=== PATIENT | male | born 1945 ===

== ENCOUNTER 2020-09-01 14:19 | Emergency (ER) | payer OTHER ==
--- NOTE | 2020-09-01 15:23 | EDM.PDOC ---
ED HPI GENERAL MEDICAL PROBLEM - General Chief Complaint: Back Pain or Injury Stated Complaint: FELL ON TUESDAY INJURED BACK Time Seen by Provider: 09/01/20 14:50 Source of Information: Reports: Patient, RN, RN Notes Reviewed History Limitations: Reports: No Limitations - History of Present Illness INITIAL COMMENTS - FREE TEXT/NARRATIVE: Logan is a 74 y/o male who presents to the ED via personal vehicle with complaints of left, lateral chest pain. The patient reports he slipped while exiting his jacuzzi tub two nights ago, 08/30/20, and landed on his left side and arm. He did not strike his head or lose consciousness during the event. 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 He denies shortness of breath, palpitations, or paraesthesia of the left extremity. He does note pain with deep inspiration and decreased mobility of the left shoulder d/t pain. The patient reports the pain to his left, lateral chest is improving and does not increase with palpation of the area; same with his left shoulder. He has not taken any medication for this problem. Left Lower Chest Pain Score (Numeric/FACES): 6 - Related Data Allergies Allergy/AdvReac Type Severity Reaction Status Date / Time Penicillins Allergy Cannot Verified 09/01/20 14:48 Remember Home Meds: Home Meds . [Unable to Verify Home Med List] 09/01/20 [History] Past Medical History - Past Health History Medical/Surgical History: Denies Medical/Surgical History Social & Family History - Tobacco Use Tobacco Use Status *Q: Never Tobacco User - Recreational Drug Use Recreational Drug Use: No ED ROS GENERAL - Review of Systems Review Of Systems: Comprehensive ROS is negative, except as noted in HPI. ED EXAM, UPPER BACK/NECK PAIN - Physical Exam Exam: See Below Exam Limited By: No Limitations General Appearance: Alert, No Apparent Distress, Thin Eye Exam: Bilateral Eye: EOMI, Normal Inspection, PERRL (3mm) Throat/Mouth Exam: Normal Inspection, Normal Oropharynx, Normal Voice, No Airway Compromise Head Exam: Atraumatic, Normocephalic Neck Exam: Non-Tender, Full Range of Motion, Normal Alignment, Normal Inspection, Other (No cervical spine point tenderness; No pain with flexion, extension, or lateral rotation) Cardiovascular/Respiratory: Regular Rate, Rhythm, No M/R/G, Normal Peripheral Pulses, No JVD, Normal Breath Sounds, No Respiratory Distress, Other (No decreased breath sounds, crepitus, rales, rhonchi, or accessory muscle use; No pain to palpation of thorax) GI/Abdominal: Normal Bowel Sounds, Soft, Non-Tender, No Distention, No Mass, Pelvis Stable (Male) Exam: Deferred Rectal (Males) Exam: Deferred Back Exam: Normal Inspection, Full Range of Motion, Other (No vertebral or paraspinal tenderness) Extremities: No Pedal Edema, Normal Capillary Refill, Arm Pain (To left shoulder), Limited Range of Motion (To left shoulder; ), Other (No joint swelling, ecchymosis, hematoma, warmth, or redness) 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 As Tested, No Motor/Sensory Deficits, Alert, Normal Mood/Affect, Oriented x 3 Psychiatric: Normal Affect, Normal Mood Skin Exam: Normal Color, Warm/Dry Lymphatic: No Adenopathy Course - Vital Signs Last Recorded V/S: Last Vital Signs Temp 98.1 F 09/01/20 14:48 Pulse 95 09/01/20 14:48 Resp 16 09/01/20 14:48 BP 130/85 09/01/20 14:48 Pulse Ox 98 09/01/20 14:48 - Orders/Labs/Meds Meds: Medications Discontinued Medications Generic Name Dose Route Start Last Admin Trade Name Simonq PRN Reason Stop Dose Admin Acetaminophen 1,000 mg 09/01/20 15:24 09/01/20 15:32 Acetaminophen 500 Mg Tab PO 09/01/20 15:25 1,000 mg ONETIME ONE Administration - Re-Assessments/Exams Free Text/Narrative Re-Assessment/Exam: 09/01/20 Given patient's improvement in pain, inability to invoke pain with palpation of thorax, lack of crepitus, and adamant denial regarding shortness of breath, will refrain from obtaining chest and shoulder film. Patient instructed to treat pain to avoid subconscious splinting, including analgesics and supportive cares. Will treat pain here with acetaminophen 1gm PO. Red flag signs and symptoms which would warrant reevaluation reviewed. Patient verbalized understanding and agreement with the plan of care. Departure - Departure Time of Disposition: 15:20 Disposition: Home, Self-Care 01 Condition: Good Clinical Impression: Fall from ground level, Rib pain on left side, Mid back pain on left side - Discharge Information *PRESCRIPTION DRUG MONITORING PROGRAM REVIEWED*: Not Applicable *COPY OF PRESCRIPTION DRUG MONITORING REPORT IN PATIENT [place]: Not Applicable Instructions: Acute Back Pain, Adult, Fall Prevention in the Home, Adult Forms: ED Department Discharge Additional Instructions: 1.) You may take acetaminophen (Tylenol) 650mg every six hours, as pain persists. 2.) You may alternate heat and ice to the painful area. 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 Sepsis Event Note (ED) - Evaluation Sepsis Screening Result: No Definite Risk
[2020-09-01] MEDS ORDERED: Acetaminophen 500 MG Tab PO ONE (15:24)
== END 2020-09-01 15:37 | disposition home or self-care (01) ==
LOC: DL.ED 14:19
DX: R07.81 Pleurodynia (principal); M54.6 Pain in thoracic spine; Z88.0 Allergy status to penicillin; W01.0XXA Fall on same level from slipping, tripping and stumbling without subsequent striking against object, initial encounter
CPT/HCPCS: 99282; 99283; A9270-GY